=== PATIENT | male | born 1960 | race Two or more races ===

== ENCOUNTER 2022-11-04 15:48 | Inpatient (IN) | payer MEDICAID, OTHER ==
[~2022-11-04] VITALS: Ht 167.6 cm; Wt 78.6 kg
[2022-11-04] MEDS ORDERED: ONDANSETRON HCL 4 MG/2 ML VIAL IV ONE ×2 (16:15→22:45)
[2022-11-04 16:40] LABS: Basophils # (auto) 0.1 10 ^3/uL (0-0.2); Basophils % (auto) 0.4 % (0.0-2.0); Eosinophils # (auto) 0 10 ^3/uL (0-0.8); Hematocrit 51.6 % (41.0-53.0); Hemoglobin 17.6 g/dL (13.5-17.5); Mean Corpuscular Hemoglobin 30.5 pg (28.0-32.0); Mean Corpuscular Volume 89.6 fL (80.0-100.0); Monocytes # (auto) 0.5 10 ^3/uL (0-1.3); Monocytes % (auto) 3.2 % (0.0-12.0); Neutrophils # (auto) 13.2 10 ^3/uL (1.6-8.6); Neutrophils % (auto) 89.4 % (37.0-80.0); Red Blood Cells 5.76 10^6/uL (4.5-5.90); Red Cell Distribution Width 14.7 % (11.8-14.3); White Blood Cell 14.8 10^3/uL (4.4-10.8)
[2022-11-04 17:04] LABS: Albumin 5.2 g/dL (3.4-5.0); Calcium 10.3 mg/dL (8.5-10.1); Potassium 4.2 mmol/L (3.5-5.1)
[2022-11-04 17:07] LABS: Bilirubin, Total 0.7 mg/dL (0.2-1.0)
[2022-11-04 17:15] LABS: Lactic Acid w/Reflex 2.7 mmol/L (0.4-2.0)
[2022-11-04] MEDS ORDERED: SODIUM CHLORIDE 0.9% 1,000 ML IV ONE (19:15)
[2022-11-04] MEDS ORDERED: cefTRIAXone 1GM/50ML D5W 50 ML IV ONE (20:00)
[2022-11-04] MEDS ORDERED: KETOROLAC TROMETH 30 MG/ML 1ML VIAL IV ONE (22:45)
[2022-11-04] MEDS ORDERED: TEMAZEPAM 15 MG CAP PO PRN (23:00)
[2022-11-04] MEDS ORDERED: ONDANSETRON HCL 4 MG/2 ML VIAL IV PRN (23:00)
[2022-11-04] MEDS ORDERED: ACETAMINOPHEN 325 MG TAB PO PRN (23:00)
[2022-11-04] MEDS ORDERED: HYDROcodone-ACET 5/325MG TAB PO PRN (23:00)
[2022-11-04 23:05] VITALS: BP 117/80; PULSE 108; RESP 18; TEMP 98; O2SAT 98
[2022-11-05] MEDS ORDERED: SODIUM CHLORIDE 0.9% 1,000 ML IV SCH (01:00)
[2022-11-05] MEDS ORDERED: PANTOPRAZOLE 40 MG TAB PO SCH (10:00)
[2022-11-05] MEDS ORDERED: cefTRIAXone 1GM/50ML D5W 50 ML IV SCH (23:00)
== END 2022-11-05 02:26 | disposition left against medical advice (07) | DRG 720 ==
LOC: ER 15:48 → OVERFLOW 22:54
PROVIDERS: ADMIT Nurse Practitioner; ATTEND Nurse Practitioner
DX: A41.9 Sepsis, unspecified organism (principal); N17.9 Acute kidney failure, unspecified; Z53.29 Procedure and treatment not carried out because of patient's decision for other reasons; N39.0 Urinary tract infection, site not specified; N20.0 Calculus of kidney
CPT/HCPCS: 36415; 74176; 80053; 82550; 83036; 83605; 83690; 85025; 87040; 96365; G0378; J0696; J1885; J2405